=== PATIENT | male | born 1935 | race African-American/Black ===

== ENCOUNTER 2018-11-18 20:49 | Inpatient (IN) | payer OTHER, MEDICAID ==
[~2018-11-18] VITALS: Ht 182.9 cm; Wt 63.5 kg
[2018-11-18] MEDS ORDERED: LORAZEPAM 2MG/ML CPJ IV ONE (22:45)
[2018-11-18] MEDS ORDERED: DILTIAZEM HCL 5MG/ML 5ML VIAL IV ONE (22:45)
[2018-11-18] MEDS ORDERED: HYDRALAZINE 20MG/ML VIAL IV ONE (22:45)
[2018-11-18] MEDS ORDERED: HALOPERIDOL LACTATE 5MG/ML VIAL IM ONE (22:45)
[2018-11-18] MEDS ORDERED: ASPIRIN 300MG SUPP PR ONE (23:00)
[2018-11-18 23:01] LABS: HEMATOCRIT. 44.7 % (42.0-52.0); HEMOGLOBIN. 15.1 g/dL (14.0-18.0); MEAN CORPUSCULAR HEMOGLOBIN 31.7 pg (28.0-32.0); MEAN CORPUSCULAR VOLUME 93.7 fL (80.0-94.0); MEAN PLATELET VOLUME 8.1 fl (7.4-10.4); PLATELET 242 x1000/uL (130-400); RED BLOOD CELL COUNT 4.77 mill/uL (4.7-6.1)
[2018-11-18 23:02] LABS: CHLORIDE 102 mEq/L (98-107)
[2018-11-18 23:06] LABS: ETHANOL BLOOD < 10 mg/dL
[2018-11-18 23:08] LABS: INR 3.4; PROTHROMBIN TIME 33.5 sec (9.6-11.0)
[2018-11-18 23:09] LABS: LDL CHOLESTEROL 120 mg/dL (5-100)
[2018-11-18 23:35] LABS: PLATELET ESTIMATE NORMAL
[2018-11-18] MEDS ORDERED: DILTIAZEM HCL 125 MG in DEXT 5% WATER 100 ML IV NR ×4 (23:45)
[2018-11-18] MEDS ORDERED: HYDRALAZINE 20MG/ML VIAL IV NR (23:45)
[2018-11-19] VITALS (47 sets, daily range): BP systolic 145–209; BP diastolic 49–169
[2018-11-19] MEDS ORDERED: ASPIRIN 300MG SUPP PR NR (00:30)
[2018-11-19] MEDS ORDERED: IOHEXOL-350 100 ML BOTTLE ONE (01:05)
[2018-11-19] MEDS ORDERED: HALOPERIDOL LACTATE 5MG/ML VIAL IM ONE (01:30)
[2018-11-19] MEDS ORDERED: LORAZEPAM 2MG/ML CPJ IV ONE (01:30)
[2018-11-19 01:47] LABS: CLARITY URINE CLEAR (CLEAR); COLOR URINE YELLOW (YELLOW); KETONES URINE NEGATIVE (NEGATIVE); LEUKOCYTE ESTERASE URINE NEGATIVE (NEGATIVE); NITRITE URINE NEGATIVE (NEGATIVE); OCCULT BLOOD URINE NEGATIVE (NEGATIVE); PROTEIN URINE NEGATIVE (NEGATIVE); SPECIFIC GRAVITY URINE 1.032 (1.005-1.030); UROBILINOGEN URINE 0.2 E.U./dL (0.2-1.0)
[2018-11-19 01:56] LABS: *AMPHETAMINES SCREEN URINE NEGATIVE (NEGATIVE); *BARBITURATES SCREEN URINE NEGATIVE (NEGATIVE); *BENZODIAZEPINES SCREEN URINE NEGATIVE (NEGATIVE); *COCAINE SCREEN URINE NEGATIVE (NEGATIVE); METHADONE URINE SCREEN NEGATIVE (NEGATIVE)
[2018-11-19 01:57] LABS: CANNABINOID URINE SCREEN PRESUMTIVE POSITIVE (NEGATIVE); OPIATES URINE SCREEN NEGATIVE (NEGATIVE); PHENCYCLIDINE URINE SCREEN NEGATIVE (NEGATIVE)
[2018-11-19] MEDS ORDERED: HYDROMORPHONE HCL/PF 2MG/ML CPJ IV PRN (06:30)
[2018-11-19] MEDS ORDERED: IPRATROPIUM/ALBUTEROL 0.5-3(2.5)MG/3ML NEB INH PRN (06:30)
[2018-11-19] MEDS ORDERED: HYDROCODONE/ACETAMINOPHEN 5/325MG TABLET PO PRN (06:30)
[2018-11-19] MEDS ORDERED: DOCUSATE SODIUM 100MG CAPSULE PO PRN (06:30)
[2018-11-19] MEDS ORDERED: CLONIDINE 0.1MG TABLET PO PRN (06:30)
[2018-11-19] MEDS ORDERED: LORAZEPAM 2MG/ML CPJ IV PRN (06:30)
[2018-11-19] MEDS ORDERED: ACETAMINOPHEN 325MG TABLET PO PRN (06:30)
[2018-11-19] MEDS ORDERED: GUAIFENESIN 200MG/10ML SUGAR FREE UDC PO PRN (06:30)
[2018-11-19] MEDS ORDERED: MAGNESIUM/ALUMINUM HYDROXIDE/SIMETHICONE 30ML UDC PO PRN (06:30)
[2018-11-19] MEDS ORDERED: DIPHENHYDRAMINE 50MG/ML VIAL IV PRN (06:30)
[2018-11-19] MEDS ORDERED: ONDANSETRON HCL 4MG/2ML INJ IV PRN (06:30)
[2018-11-19] MEDS: LORAZEPAM 2MG/ML CPJ IV PRN (06:42)
[2018-11-19] MEDS: DEXT 5%/0.45% NACL 1000ML 1,000 ML IV SCH (07:04)
[2018-11-19] MEDS: DILTIAZEM HCL 125 MG in DEXT 5% WATER 100 ML IV PRN (12:55)
[2018-11-19] MEDS: SODIUM CHLORIDE 0.9% INJ 3ML FLUSH IVF SCH ×2 (13:17→21:02)
[2018-11-19 14:13] LABS: CREATINE KINASE MB FRACTION 8.1 ng/mL (0.5-3.6)
[2018-11-20] VITALS (45 sets, daily range): BP systolic 112–195; BP diastolic 59–126
[2018-11-20] MEDS: SODIUM CHLORIDE 0.9% INJ 3ML FLUSH IVF SCH ×3 (05:08→21:01)
[2018-11-20] MEDS: DEXT 5%/0.45% NACL 1000ML 1,000 ML IV SCH (05:28)
[2018-11-20] MEDS: DILTIAZEM HCL 125 MG in DEXT 5% WATER 100 ML IV PRN (05:29)
[2018-11-20 05:46] LABS: HEMATOCRIT. 41.5 % (42.0-52.0); MEAN CORPUSCULAR HEMOGLOBIN 31.1 pg (28.0-32.0); MEAN PLATELET VOLUME 8.4 fl (7.4-10.4); PLATELET 231 x1000/uL (130-400); RED BLOOD CELL COUNT 4.51 mill/uL (4.7-6.1)
[2018-11-20 06:09] LABS: CHLORIDE 102 mEq/L (98-107)
[2018-11-20 08:25] LABS: PLATELET ESTIMATE NORMAL
[2018-11-20] MEDS: SODIUM CHLORIDE 0.45% 1,000 ML IV SCH (10:45)
[2018-11-20] MEDS: HYDRALAZINE 20MG/ML VIAL IV PRN ×2 (12:14→16:29)
[2018-11-20] MEDS: DILTIAZEM HCL 125 MG in DEXT 5% WATER 100 ML IV SCH (13:35)
[2018-11-20 17:34] LABS: INR 1.2; PROTHROMBIN TIME 12.1 sec (9.6-11.0)
[2018-11-20] MEDS: ENOXAPARIN 40MG/0.4ML SYR SUBCUT SCH (18:30)
[2018-11-20] MEDS: PANTOPRAZOLE SODIUM 40 MG/VIAL IV SCH (21:01)
[2018-11-21] VITALS (12 sets, daily range): BP systolic 109–158; BP diastolic 47–99
[2018-11-21] MEDS: DILTIAZEM HCL 125 MG in DEXT 5% WATER 100 ML IV SCH (02:28)
[2018-11-21] MEDS: SODIUM CHLORIDE 0.9% INJ 3ML FLUSH IVF SCH ×3 (05:03→21:34)
[2018-11-21] MEDS: LORAZEPAM 2MG/ML CPJ IV PRN ×2 (05:44→12:11)
[2018-11-21 06:42] LABS: HEMOGLOBIN. 14.3 g/dL (14.0-18.0); MEAN CORPUSCULAR HEMOGLOBIN 31.5 pg (28.0-32.0); MEAN CORPUSCULAR VOLUME 92.7 fL (80.0-94.0); MEAN PLATELET VOLUME 8.8 fl (7.4-10.4); PLATELET 220 x1000/uL (130-400); RED BLOOD CELL COUNT 4.52 mill/uL (4.7-6.1); RED CELL DISTRIBUTION WIDTH 15.9 % (11.6-14.6)
[2018-11-21 07:27] LABS: CHLORIDE 104 mEq/L (98-107)
[2018-11-21 08:38] LABS: PLATELET ESTIMATE NORMAL
[2018-11-21] MEDS: SODIUM CHLORIDE 0.45% 1,000 ML IV SCH (12:07)
[2018-11-21] MEDS: ENOXAPARIN 40MG/0.4ML SYR SUBCUT SCH (18:44)
[2018-11-21] MEDS: PANTOPRAZOLE SODIUM 40 MG/VIAL IV SCH (21:34)
[2018-11-22] VITALS (21 sets, daily range): BP systolic 96–160; BP diastolic 33–115
[2018-11-22] MEDS: DILTIAZEM HCL 125 MG in DEXT 5% WATER 100 ML IV SCH (05:36)
[2018-11-22] MEDS: SODIUM CHLORIDE 0.9% INJ 3ML FLUSH IVF SCH ×2 (05:36→12:04)
[2018-11-22 07:48] LABS: HEMATOCRIT. 40.7 % (42.0-52.0); HEMOGLOBIN. 13.8 g/dL (14.0-18.0); MEAN CORPUSCULAR HEMOGLOBIN 31.3 pg (28.0-32.0); MEAN PLATELET VOLUME 8.2 fl (7.4-10.4); PLATELET 214 x1000/uL (130-400); RED BLOOD CELL COUNT 4.43 mill/uL (4.7-6.1); RED CELL DISTRIBUTION WIDTH 15.7 % (11.6-14.6)
[2018-11-22 08:02] LABS: CHLORIDE 105 mEq/L (98-107)
[2018-11-22] MEDS ORDERED: DILTIAZEM HCL 125 MG in DEXT 5% WATER 100 ML IV PRN (10:45)
[2018-11-22 11:10] LABS: PLATELET ESTIMATE NORMAL
[2018-11-22] MEDS: SODIUM CHLORIDE 0.45% 1,000 ML IV SCH (12:04)
[2018-11-22] MEDS ORDERED: DILTIAZEM HCL 30MG TABLET PO SCH (14:00)
[2018-11-22] MEDS ORDERED: NON FORMULARY PATIENT HOME MED XX SCH (18:15)
[2018-11-22] MEDS: ENOXAPARIN 40MG/0.4ML SYR SUBCUT SCH (18:54)
[2018-11-22] MEDS ORDERED: PETROLATUM,WHITE OPHTH OINT 3.5GM BOTHEYE SCH (21:00)
[2018-11-22] MEDS ORDERED: FAMOTIDINE 20MG/2ML VIAL IV SCH (21:00)
[2018-11-22] MEDS ORDERED: ATORVASTATIN CALCIUM 10MG TABLET PO SCH (21:00)
== END 2018-11-22 19:39 | disposition short-term general hospital (02) | DRG 64 ==
LOC: ER 20:49 → EDBEDREQ 11-19 01:08 → EDBEDREQTM 11-19 01:08 → CVICU 11-19 02:40 → EDBEDREQDT 11-19 02:47 → EDBEDREQTM 11-19 02:47 → EDBEDREQSVC 11-19 02:47 → EDBEDREQ 11-19 02:47 → ENRESERV 11-19 07:15 → 5EST 11-20 15:36
PROVIDERS: ADMIT Internal Medicine; ATTEND Internal Medicine
DX: I63.9 Cerebral infarction, unspecified (principal); G93.41 Metabolic encephalopathy; R65.10 Systemic inflammatory response syndrome (SIRS) of non-infectious origin without acute organ dysfunction; D68.9 Coagulation defect, unspecified; I11.0 Hypertensive heart disease with heart failure; I50.9 Heart failure, unspecified; E78.5 Hyperlipidemia, unspecified; F17.200 Nicotine dependence, unspecified, uncomplicated; E78.00 Pure hypercholesterolemia, unspecified; I07.1 Rheumatic tricuspid insufficiency; I27.29 Other secondary pulmonary hypertension; I27.81 Cor pulmonale (chronic); I48.2 Chronic atrial fibrillation; I66.01 Occlusion and stenosis of right middle cerebral artery; Z91.14 Patient's other noncompliance with medication regimen; Z79.899 Other long term (current) drug therapy
CPT/HCPCS: 36415; 70496; 70498; 71045; 80048; 80305; 80320; 82550; 82553; 82962; 83721; 83735; 84484; 92610; 93005; 93306; 96372; 96374; 96375; 97112; 97163; 97167; 99291; C9113; J0360; J1630; J1650; J2060; J3490; J7060; Q9967; A4315; G0480

== ENCOUNTER 2018-12-06 19:59 | Emergency (ER) | payer OTHER, MEDICAID ==
[~2018-12-06] VITALS: Ht 177.8 cm; Wt 68.0 kg
[2018-12-06] MEDS ORDERED: SODIUM CHLORIDE 0.9% 1,000 ML IV ONE (20:31)
[2018-12-06 21:07] LABS: BASOPHILS % 0.3 % (0.0-2.0); EOSINOPHILS % 0.5 % (0.0-5.0); HEMATOCRIT. 40.2 % (42.0-52.0); HEMOGLOBIN. 13.7 g/dL (14.0-18.0); LYMPHOCYTES % 9.1 % (20.0-50.0); MEAN CORPUSCULAR HEMOGLOBIN 31.2 pg (28.0-32.0); MEAN CORPUSCULAR VOLUME 91.8 fL (80.0-94.0); MEAN PLATELET VOLUME 8.1 fl (7.4-10.4); MONOCYTES % 8.4 % (2.0-8.0); NEUTROPHILS % 81.7 % (40.0-76.0); PLATELET 367 x1000/uL (130-400); RED BLOOD CELL COUNT 4.38 mill/uL (4.7-6.1); RED CELL DISTRIBUTION WIDTH 15.3 % (11.6-14.6)
[2018-12-06 21:11] LABS: INR 1.2; PROTHROMBIN TIME 12.7 sec (9.6-11.0)
[2018-12-06 21:24] LABS: CHLORIDE 99 mEq/L (98-107)
[2018-12-06] MEDS ORDERED: ONDANSETRON HCL 4MG/2ML INJ IV NR (21:33)
[2018-12-06] MEDS: MORPHINE SULFATE 4 MG/ML CPJ (NOT FOR IM USE) IV NR ×2 (22:06→22:07)
[2018-12-06 22:38] LABS: CLARITY URINE CLEAR (CLEAR); COLOR URINE YELLOW (YELLOW); KETONES URINE NEGATIVE (NEGATIVE); LEUKOCYTE ESTERASE URINE NEGATIVE (NEGATIVE); NITRITE URINE NEGATIVE (NEGATIVE); OCCULT BLOOD URINE 1+ (NEGATIVE); PROTEIN URINE NEGATIVE (NEGATIVE); SPECIFIC GRAVITY URINE 1.007 (1.005-1.030); UROBILINOGEN URINE 0.2 E.U./dL (0.2-1.0)
[2018-12-06] MEDS ORDERED: IOHEXOL-350 100 ML BOTTLE ONE (23:13)
[2018-12-06] MEDS ORDERED: IOHEXOL-300 100 ML BOTTLE ONE (23:16)
[2018-12-07] MEDS ORDERED: ASPIRIN 325MG TABLET PO ONE (01:00)
[2018-12-07 02:43] VITALS: BP 144/92
== END 2018-12-07 03:18 | disposition short-term general hospital (02) ==
LOC: ER 19:59 → CANBEDREQ 12-07 05:42
DX: K85.90 Acute pancreatitis without necrosis or infection, unspecified (principal); E87.1 Hypo-osmolality and hyponatremia; I48.91 Unspecified atrial fibrillation
CPT/HCPCS: 36415; 71045; 74177; 80053; 81003; 83605; 83690; 83880; 84484; 85025; 85610; 93005; 96361; 96374; 96375; 99285; J2270; J2405; J7030; Q9967

== ENCOUNTER 2018-12-15 16:24 | Emergency (ER) | payer OTHER, MEDICAID ==
[~2018-12-15] VITALS: Ht 177.8 cm; Wt 75.0 kg
[2018-12-15 18:21] LABS: CHLORIDE 100 mEq/L (98-107)
[2018-12-15 18:24] LABS: BASOPHILS % 0.7 % (0.0-2.0); EOSINOPHILS % 1.6 % (0.0-5.0); HEMOGLOBIN. 13.8 g/dL (14.0-18.0); LYMPHOCYTES % 9.5 % (20.0-50.0); MEAN CORPUSCULAR VOLUME 92.5 fL (80.0-94.0); MEAN PLATELET VOLUME 7.9 fl (7.4-10.4); MONOCYTES % 7.9 % (2.0-8.0); NEUTROPHILS % 80.3 % (40.0-76.0); PLATELET 267 x1000/uL (130-400); RED BLOOD CELL COUNT 4.32 mill/uL (4.7-6.1); RED CELL DISTRIBUTION WIDTH 15.5 % (11.6-14.6)
[2018-12-15 18:34] LABS: CLARITY URINE CLOUDY (CLEAR); COLOR URINE YELLOW (YELLOW); KETONES URINE NEGATIVE (NEGATIVE); LEUKOCYTE ESTERASE URINE 2+ (NEGATIVE); NITRITE URINE NEGATIVE (NEGATIVE); OCCULT BLOOD URINE 3+ (NEGATIVE); PROTEIN URINE NEGATIVE (NEGATIVE)
[2018-12-15] MEDS ORDERED: ACETAMINOPHEN 500MG TABLET PO ONE (20:30)
[2018-12-15 22:04] VITALS: BP 120/87
== END 2018-12-15 22:05 | disposition home or self-care (01) ==
LOC: ER 16:24
DX: N39.0 Urinary tract infection, site not specified (principal); N50.3 Cyst of epididymis; N43.3 Hydrocele, unspecified; I11.9 Hypertensive heart disease without heart failure; Z86.73 Personal history of transient ischemic attack (TIA), and cerebral infarction without residual deficits
CPT/HCPCS: 36415; 76870; 80048; 93976; 99284

== ENCOUNTER 2018-12-24 12:28 | Emergency (ER) | payer OTHER, MEDICAID ==
[~2018-12-24] VITALS: Ht 172.7 cm; Wt 70.0 kg
[2018-12-24] MEDS ORDERED: ACETAMINOPHEN 325MG TABLET PO STA (13:47)
[2018-12-24] MEDS ORDERED: PIPERACILLIN/TAZ 3.375G PREMIX 50 ML IV ONE (14:15)
[2018-12-24] MEDS ORDERED: VANCOMYCIN 1 G PREMIX 200 ML IV SCH (14:15)
[2018-12-24 14:38] LABS: HEMATOCRIT. 40.5 % (42.0-52.0); HEMOGLOBIN. 13.8 g/dL (14.0-18.0); MEAN CORPUSCULAR HEMOGLOBIN 31.7 pg (28.0-32.0); MEAN CORPUSCULAR VOLUME 92.9 fL (80.0-94.0); MEAN PLATELET VOLUME 7.6 fl (7.4-10.4); PLATELET 261 x1000/uL (130-400); RED BLOOD CELL COUNT 4.36 mill/uL (4.7-6.1); RED CELL DISTRIBUTION WIDTH 16.1 % (11.6-14.6)
[2018-12-24 14:41] LABS: CHLORIDE 98 mEq/L (98-107)
[2018-12-24 14:43] LABS: INR 1.2; PROTHROMBIN TIME 12.5 sec (9.6-11.0)
[2018-12-24 14:46] LABS: ETHANOL BLOOD < 10 mg/dL
[2018-12-24] MEDS ORDERED: MORPHINE SULFATE 4 MG/ML CPJ (NOT FOR IM USE) IV ONE (15:15)
[2018-12-24 15:48] LABS: PLATELET ESTIMATE NORMAL
[2018-12-24 16:35] LABS: CLARITY URINE CLEAR (CLEAR); COLOR URINE YELLOW (YELLOW); KETONES URINE NEGATIVE (NEGATIVE); LEUKOCYTE ESTERASE URINE NEGATIVE (NEGATIVE); NITRITE URINE NEGATIVE (NEGATIVE); OCCULT BLOOD URINE NEGATIVE (NEGATIVE); PH URINE 7.5 (4.5-8.0); PROTEIN URINE NEGATIVE (NEGATIVE); SPECIFIC GRAVITY URINE 1.004 (1.005-1.030); UROBILINOGEN URINE 0.2 E.U./dL (0.2-1.0)
[2018-12-24 16:49] LABS: *BENZODIAZEPINES SCREEN URINE NEGATIVE (NEGATIVE); *COCAINE SCREEN URINE NEGATIVE (NEGATIVE)
[2018-12-24 16:50] LABS: *AMPHETAMINES SCREEN URINE NEGATIVE (NEGATIVE); *BARBITURATES SCREEN URINE NEGATIVE (NEGATIVE); CANNABINOID URINE SCREEN NEGATIVE (NEGATIVE); METHADONE URINE SCREEN NEGATIVE (NEGATIVE); OPIATES URINE SCREEN NEGATIVE (NEGATIVE); PHENCYCLIDINE URINE SCREEN NEGATIVE (NEGATIVE)
[2018-12-24 21:35] VITALS: BP 135/74
== END 2018-12-25 00:16 | disposition short-term general hospital (02) ==
LOC: ER 12:28 → CANBEDREQ 17:30 → ER 12-25 00:16
DX: R53.1 Weakness (principal); E86.0 Dehydration; R62.7 Adult failure to thrive; Z68.23 Body mass index [BMI] 23.0-23.9, adult; N43.3 Hydrocele, unspecified; I11.9 Hypertensive heart disease without heart failure; Z86.73 Personal history of transient ischemic attack (TIA), and cerebral infarction without residual deficits
CPT/HCPCS: 36415; 70450; 71045; 80053; 80305; 80320; 81003; 83605; 84145; 84484; 85025; 85610; 86850; 86900; 86901; 87040; 87086; 93005; 96365; 96367; 96375; 99285; J2270; J2543; J3370; P9612; A4315; G0480